=== PATIENT | female | born 1935 | race Caucasian/White ===

== ENCOUNTER → 2018-05-08 09:33 | Outpatient (CLI) | payer MEDICARE, BC ==
[2010-10-21 09:29] VITALS: BMI 23.8
== END | disposition home or self-care (01) ==
LOC: D.CT 09:33
DX: G31.84 Mild cognitive impairment of uncertain or unknown etiology (principal)

== ENCOUNTER 2019-02-14 14:43 | Inpatient (IN) | payer MEDICARE, BC ==
[~2019-02-14] VITALS: Ht 157.5 cm; Wt 53.1 kg
[2019-02-14 15:06] LABS: BASOPHILS 0.5 % (0-2); EOSINOPHILS 0.6 % (0-7); HEMATOCRIT 36.1 % (36.0-48.0); HEMOGLOBIN 11.7 g/dL (12-16); IMMATURE GRANULOCYTES 0.2 % (0-5); MCHC 32.4 g/dL (31.0-37.0); MCV 95.8 fL (80.0-100.0); MEAN PLATELET VOLUME 9.5 fL (7.4-10.4); MONOCYTES 5.5 % (2-11); NEUTROPHILS 81.2 % (40-80); PLATELET COUNT 234 10x3/uL (130-400); RBC 3.77 10x6/uL (4.00-5.40); RDW 14.2 % (11.5-14.5); WBC 8.8 10x3/uL (4.8-10.8)
[2019-02-14 15:16] LABS: ANION GAP 10.7 mmol/L (8-16); CARBON DIOXIDE 27.9 mmol/L (21.0-32.0); CREATININE - SERUM 1.1 mg/dL (0.6-1.3); POTASSIUM - SERUM 4.6 mmol/L (3.5-5.1)
[2019-02-14 15:24] LABS: ALBUMIN 3.7 g/dL (3.4-5.0); BILIRUBIN - TOTAL 0.67 mg/dL (0.2-1.3); PROTEIN - SERUM 7.4 g/dL (6.4-8.2)
--- NOTE | 2019-02-14 15:30 | NUR ---
PATIENT ASSISTED WITH BEDPAN
[2019-02-14 15:31] LABS: APTT 26.1 SECONDS (22.8-39.4); INR 0.99 (0.85-1.17); PROTIME 12.6 SECONDS (11.6-15.0)
--- NOTE | 2019-02-14 16:40 | NUR ---
PT'S ABDM DISTENDED AND FIRM; EDP RAJAT NOTIFIED; AND INDWELLING OATES CAT ORDERED; 1000 MLS URINE OUTPUT; CATH CLAMPED;
[2019-02-14 17:09] VITALS: BP 188/93
--- NOTE | 2019-02-14 17:41 | NUR ---
RECEIVED PATIENT FROM ER, ALERT AND ORIENTED. C/O PAIN TO RIGHT HIP. NO S/S OF ACUTE DISTRESS NOTED. VITALS STABLE IV TO LEFT FOREARM, SL. SITE PATENT WITHOUT REDNESS OR SWELLING. OATES CATHETER PRESENT. DENIES ANY NEEDS AT THIS TIME. CALL LIGHT IN REACH. WILL CONTINUE TO MONITOR.
[2019-02-14 17:43] VITALS: BP 181/84
--- NOTE | 2019-02-14 18:44 | NUR ---
ALERT AND ORIENTED, RESTING IN BED. C/O PAIN, GAVE TYLENOL FOR THE PAIN. REFUSED MORPHINE. BP IS UP GAVE CLONIDINE FOR BP BEING 184/81.
--- NOTE | 2019-02-14 19:15 | NUR ---
BEDSIDE REPORT RECEIVED FROM KAITLYNN ESPINOSA. PATIENT ALERT AND ORIENTED WITH AT BEDSIDE. PUPILS REACTIVE. HAND ADVERTISING COPY WRITER STRONG AND EQUAL BILATERALLY. LUNGS CLEAR TO AUSCULTATION BILATERALLY. PATIENT PEDAL PULSES PALPABLE. FOOT PUMPS WEAK, 3/5. CAPILLARY REFILL LESS THAN 3 SECONDS. DENIES PAIN. SPOKE WITH PATIENT ABOUT MORPHINE AND TYLENOL. PATIENT DOES NOT WANT MORPHINE. STATES SHE WANTS TO KEEP TAKING TYLENOL. DENIES FURTHER NEEDS AT THIS TIME. CALL LIGHT IN REACH. EDUCATED ON NPO STATUS. PATIENT UNDERSTANDING.
[2019-02-14 19:59] LABS: APPEARANCE CLEAR (CLEAR); BILIRUBIN NEGATIVE (NEGATIVE); COLOR STRAW (YELLOW); GLUCOSE NEGATIVE (NEGATIVE); KETONE NEGATIVE (NEGATIVE); NITRITE NEGATIVE (NEGATIVE); PROTEIN TRACE mg/dL (NEGATIVE); SPECIFIC GRAVITY 1.005 (1.005-1.020); UROBILINOGEN NORMAL (NORMAL)
[2019-02-14 21:02] VITALS: BP 135/66
[2019-02-14 22:23] VITALS: BP 135/66; BMI 21.4
[2019-02-15] MEDS ORDERED: FISH OIL 1,0001 CA1 PO (01:02)
[2019-02-15] MEDS ORDERED: VITAMIN B-12100 MCG PO (01:03)
[2019-02-15] MEDS ORDERED: ASCORBIC ACID500 MG PO (01:04)
[2019-02-15] MEDS ORDERED: OMEPRAZOLE20 M1 PO (01:06)
[2019-02-15] MEDS ORDERED: ALENDRONAT70 MG/75 M PO (01:06)
[2019-02-15] MEDS ORDERED: SYNTHROID100 MCG PO (01:08)
[2019-02-15] MEDS ORDERED: BAYER CHEWABLE81 MG PO (01:08)
[2019-02-15 01:20] VITALS: BP 131/64
--- NOTE | 2019-02-15 04:52 | NUR ---
UNLABORED RESPIRATIONS. NO DISTRESS NOTED. CALL LIGHT IN REACH. CPOC.
--- NOTE | 2019-02-15 05:28 | NUR ---
CHG BATH PERFORMED. PATIENT TOLERATED WELL.
[2019-02-15 05:52] VITALS: BP 135/62
[2019-02-15 06:25] LABS: BASOPHILS 0.4 % (0-2); EOSINOPHILS 1.4 % (0-7); HEMATOCRIT 34.1 % (36.0-48.0); HEMOGLOBIN 10.9 g/dL (12-16); IMMATURE GRANULOCYTES 0.1 % (0-5); LYMPHOCYTES 16.2 % (15-50); MCH 30.6 pg (26.0-34.0); MCV 95.8 fL (80.0-100.0); MEAN PLATELET VOLUME 10.2 fL (7.4-10.4); MONOCYTES 9.7 % (2-11); NEUTROPHILS 72.2 % (40-80); PLATELET COUNT 225 10x3/uL (130-400); RBC 3.56 10x6/uL (4.00-5.40); RDW 14.3 % (11.5-14.5); WBC 7.7 10x3/uL (4.8-10.8)
[2019-02-15 06:48] LABS: ANION GAP 14.5 mmol/L (8-16); CALCIUM 8.6 mg/dL (8.5-10.1); CARBON DIOXIDE 24.5 mmol/L (21.0-32.0); CREATININE - SERUM 1.1 mg/dL (0.6-1.3); MAGNESIUM - SERUM 1.9 mg/dL (1.8-2.4); PHOSPHOROUS 3.4 mg/dL (2.5-4.9)
--- NOTE | 2019-02-15 06:50 | HP ---
PATIENT: GARCIA GRANADOS MEDICAL RECORD: [id number] ACCOUNT: [id number] LOCATION:D.MS [facility] : 33 ADMISSION DATE: 02/14/19 PCP: BLAINE FERGUSON MD HISTORY AND PHYSICAL EXAMINATION REASON FOR ADMISSION: Fall with right hip pain. HISTORY OF PRESENT ILLNESS: The patient is an 83-year-old female with history of essential hypertension, who was blowing leaves in her yard when the electrical cord was hung on the rock and pulled her backwards. She landed on her right hip and had immediate pain. She did not hit her head or have any loss of consciousness. She was brought by ambulance to the Emergency Room where a right femoral neck fracture was noted. The patient was also on urinary retention. She denies recent chest pain, PND, or orthopnea. PAST MEDICAL HISTORY: Essential hypertension, Hall esophagus, mild cognitive impairment, hyperlipidemia, history of hypothyroidism post-treatment, actinic keratoses, osteoarthritis, postmenopausal atrophic vaginitis, and GERD. PAST SURGICAL HISTORY: TAHBSO and tonsillectomy. SOCIAL HISTORY: [place], mold cooler until about 5 years ago. Nonsmoker. Occasional wine drinker. FAMILY HISTORY: Father of stroke. Mother of acute NH and had cancer. HOME MEDICATIONS: Benazepril 5 mg with evening meal, omeprazole 20 mg q.a.m., fish oil 1000 mg p.o. daily, vitamin B12 1000 mcg p.o. daily, vitamin C 500 mg daily, PreserVision 1 p.o. b.i.d., levothyroxine 100 mcg p.o. daily, aspirin 81 mg a day, lisinopril 20 mg a day, alendronate 70 mg a.c. breakfast q. week. REVIEW OF SYSTEMS: GENERAL: No recent fatigue, fever, or weight loss. HEENT: No recent visual change, sinus congestion, or sore throat. RESPIRATORY: No SOB or cough. CARDIAC: No chest pain, claudication, or edema. GASTROINTESTINAL: No nausea, vomiting, change in stools or blood per rectum. Has mild dyspepsia, improved on Prilosec. GENITOURINARY: History of urinary incontinence, occasionally UTI. MUSCULOSKELETAL: He has had arthritis in both knees with knee pain in his right hip discomfort as mentioned with any movement, fairly comfortable at rest. INTEGUMENT: No rash or itching. PSYCHIATRIC: Denies depress mood. NEUROLOGIC: No history of stroke, TIA, or vascular headaches. She has CT of her brain approximately a year ago that showed minimal atrophy. She has had more problems recently with recent memory and MoCA was decreased at 20/30. PHYSICAL EXAMINATION: VITAL SIGNS: Her blood pressure 180/93, pulse ox is 97% on room air. Respirations are 18 per minute, pulse is 68 and regular, temperature 97.9. The patient is alert and oriented and called my name on seeing me in the room. HEENT: Normocephalic, atraumatic. Eyes are clear. Pupils are reactive. NECK: No bruits or masses. HISTORY AND PHYSICAL [id number] GARCIA GRANADOS CHEST: Clear. HEART: Regular without murmur. ABDOMEN: Soft, nontender. BREASTS: Symmetrical. GENITOURINARY: Her bladder was distended. Post was placed. She has had over 1000 cc out briskly and Post is now clamped. Pubic rami are nontender. EXTREMITIES: She has a little bit of edema over her right lateral hip and slight shortening of the right leg. It was not examined totally because of pain. Neurovascular is intact distally. No gross edema. NEUROLOGIC: Oriented to person, place, and time. Cranial nerves intact. Gait was not tested. Reflexes are symmetrical. LABORATORY DATA: Shows a white count of 8800 with H and H of 11.7 and 36.1. INR is 0.99. Electrolytes are normal. BUN is 29 and creatinine is 1.1. Liver functions are normal. Right hip x-ray shows superior angulation of a right femoral neck fracture. Knee showed degenerative changes. EKG is pending. Chest x-ray is pending. ASSESSMENT: 1. Fall with right femoral neck fracture. 2. Essential hypertension. 3. Mild dementia. 4. Hyperlipidemia. 5. Osteoporosis. 6. Hypothyroidism. PLAN: The patient's pain will be controlled. We moved to the orthopedic floor for orthopedic consult. EKG, chest x-ray, and probable ORIF in the a.m. TRANSINT:[id number] Voice Confirmation ID: [id number] DOCUMENT ID: [id number] BLAINE FERGUSON MD at 0650 CC: [id number] DICTATION DATE: 02/14/191715 WILDLIFE CONSERVATION PROFESSOR: 02/14/192050 ADM IN [facility] [address] [id number]
--- NOTE | 2019-02-15 07:20 | NUR ---
PT RESTING IN BED. NO SIGNS OF DISTRESS. IV TO LEFT FORARM PATENT NO REDNESS OR TENDERNESS. HAS OATES NO KINKS. AWAITING FOR SURGERY TODAY. DENIES ANY FUTHER NEED AT THIS TIME. CALL LIGHT IN REACH. BED LOW POSITION. FAMILY AT BEDSIDE
[2019-02-15 08:51] VITALS: BP 162/68
[2019-02-15 12:40] VITALS: BP 149/76
--- NOTE | 2019-02-15 15:05 | NUR ---
TO OR VIA BED
--- NOTE | 2019-02-15 16:11 | NUR ---
BRUISING NOTEDON PATIENTS RIGHT HIP AND LEG, TWORLEY.
[2019-02-15 17:25] VITALS: BP 143/68
--- NOTE | 2019-02-15 19:15 | NUR ---
PATIENT ALERT AND ORIENTED WHEN ENTERING THE ROOM. AT BEDSIDE. PATIENT HAS RIGHT HIP INCISION WITH WOUND VAC ATTACHED AND APPROPRIATE SUCTION NOTED. PATIENT PEDAL PULSES PALPABLE. FOOT PUMPS EQUAL. DENIES PAIN. OATES IN PLACE DRAINING YELLOW URINE. CALL LIGHT IN REACH. CPOC.
[2019-02-15 20:56] VITALS: BP 140/64
--- NOTE | 2019-02-15 23:01 | NUR ---
IV TO THE LEFT FOREARM INFILTRATED. RESITED TO DIFFERENT AREA OF LEFT FOREARM. 22 G, ONE ATTEMPT.
[2019-02-16 05:21] VITALS: BP 153/66
[2019-02-16 05:38] LABS: ANION GAP 13.5 mmol/L (8-16); CALCIUM 7.7 mg/dL (8.5-10.1); CARBON DIOXIDE 24.3 mmol/L (21.0-32.0); CREATININE - SERUM 1.1 mg/dL (0.6-1.3); POTASSIUM - SERUM 3.8 mmol/L (3.5-5.1)
--- NOTE | 2019-02-16 06:13 | NUR ---
I have reviewed this patient and I concur with the Shift Assessment completed by the Licensed Practical Nurse today this shift.
--- NOTE | 2019-02-16 07:00 | NUR ---
PT IS RESTING IN BED WITH EYES CLOSED. RESPIRATIONS ARE EVEN AND UNLABORED. PT IS EASILY AROUSED WITH VERBAL STIMULATION. PT IS AAO X 4 UPON AROUSAL AND ANSWERS QUESTIONS APPROPRIATELY. WOUND VAC NOTED TO RIGHT HIP WITH DRESSING INTACT AND WITHOUT COMPROMISE. PIV TO LEFT FA REMOVED. PT IS NOT AWARE TO HOW PIV WAS REMOVED. CATHETER TIP INTACT. NO BLEEDING NOTED. 22G PIV RESITED TO LEFT FA X 1 ATTEMPT. PT TOLERATED WELL. PT DENIES PRESENCE OF PAIN/N/V AT THIS TIME. BED IS IN THE LOWEST POSITION. CALL LIGHT AND BEDSIDE TABLE ARE WITHIN REACH. SIDE RAILS X 2. FALL PRECAUTIONS ARE IN PLACE. PT DENIES FURTHER NEEDS. WILL CONT TO MONITOR.
[2019-02-16 09:19] VITALS: BP 119/61
--- NOTE | 2019-02-16 09:59 | NUR ---
INCENTIVE SPIROMETER GIVEN TO PT. EDUCATION PERTAINING TO IS GIVEN TO PT AND PT FAMILY MEMBER. PT RETURNS DEMONSTRATION OF PROPER USE OF IS. PT DENIES FURTHER QUESTIONS/CONCERNS.
[2019-02-16 12:20] VITALS: BP 132/66
[2019-02-16 17:04] VITALS: BP 132/64
[2019-02-16 20:00] VITALS: BP 161/75
[2019-02-17 04:00] VITALS: BP 172/89
[2019-02-17 06:56] LABS: BASOPHILS 0.2 % (0-2); EOSINOPHILS 0.2 % (0-7); HEMATOCRIT 28.7 % (36.0-48.0); HEMOGLOBIN 9.2 g/dL (12-16); IMMATURE GRANULOCYTES 0.2 % (0-5); LYMPHOCYTES 10.6 % (15-50); MCH 30.5 pg (26.0-34.0); MCHC 32.1 g/dL (31.0-37.0); MEAN PLATELET VOLUME 9.3 fL (7.4-10.4); MONOCYTES 9.7 % (2-11); NEUTROPHILS 79.1 % (40-80); PLATELET COUNT 188 10x3/uL (130-400); RBC 3.02 10x6/uL (4.00-5.40); RDW 14.5 % (11.5-14.5)
--- NOTE | 2019-02-17 07:12 | NUR ---
PT IS RESTING IN BED WITH EYES CLOSED. RESPIRATIONS ARE EVEN AND UNLABORED. PT IS EASILY AROUSED WITH VERBAL STIMULATION. PT IS ORIENTED TO SELF AND TIME UPON AROUSAL AND IS EASILY REORIENTED TO PLACE AND SITUATION. PT STATES "YOU MEAN I DIDNT LEAVE HERE LAST NIGHT? I THOUGHT THAT I WENT HOME." PT ANSWERS ALL QUESTIONS APPROPRIATLEY UPON AROUSAL. PT DENIES PRESENCE OF PAIN AND STATES "IT JUST ITCHES REALLY BAD WHERE THIS THING IS ON MY HIP" PT DENIES PRESENCE OF NUMBNESS/TINGLING/N/V/AND REPORTS PAIN 2/10 AT THIS TIME. PEDAL PULSES PALP. CAP REFILL < 3 TO RLE. PT DENIES FURTHER NEEDS. BED IS IN THE LOWEST POSITION. CALL LIGHT AND BEDSIDE TABLE ARE WITHIN REACH. SIDE RAILS X 2. FALL PRECAUTIONS ARE IN PLACE. WILL CONT TO MONITOR.
[2019-02-17 08:21] VITALS: BP 171/84
[2019-02-17 12:12] VITALS: BP 134/71
--- NOTE | 2019-02-17 14:30 | MORECARE ---
CASE MANAGEMENT DISCHARGE SUMMARY PATIENT: GARCIA GRANADOS UNIT: [id number] ADM DATE: 02/14/19 AGE: 83 : 33 SEX: F ROOM/BED: D.2214 AUTHOR: SUMA CANO PHYSICIAN: REFERRING PHYSICIAN: BLAINE FERGUSON MD DATE OF SERVICE: 02/17/19 Discharge Plan Patient Name: GARCIA GRANADOS [facility] [place] [facility] 1935 Planned Disposition: Inpatient Rehab Anticipated Discharge Date: Discharge Date: Expected LOS: Initial Reviewer: [email or web address] Initial Review Date: 02/14/2019 Generated: 02/17/19 3:30 pm Patient Name: GARCIA GRANADOS Page [phone] at 1430 All edits/amendments must be made on the electronic document DICTATION DATE: 02/17/19 [address] [employer] FACER: FAWAD 02/17/19 1430 RPT#: [id number] DC DATE: STATUS: ADM IN [facility] [address] [place] [address] END OF REPORT
--- NOTE | 2019-02-17 14:38 | MORECARE ---
CASE MANAGEMENT DISCHARGE SUMMARY PATIENT: GARCIA GRANADOS UNIT: [id number] ADM DATE: 02/14/19 AGE: 83 : 33 SEX: F ROOM/BED: D.2214 AUTHOR: SMUA CANO PHYSICIAN: REFERRING PHYSICIAN: BLAINE FERGUSON MD DATE OF SERVICE: 02/17/19 Discharge Plan Patient Name: GARCIA GRANADOS Facility: [facility]:[place] : 1935 Planned Disposition: Inpatient Rehab Anticipated Discharge Date: Discharge Date: Expected LOS: Initial Reviewer: [email or web address] Initial Review Date: 02/14/2019 Generated: 02/17/19 3:38 pm Comments DCP- Discharge Planning Updated by [email or web address]: Poly Willson on 02/17/19 1:[address] Patient Name: GARCIA GRANADOS Admission Status: ER Accout number: [id number] Admission Date: 02-14-2019 : 1935 Admission Diagnosis: Attending: BLAINE FERGUSON Current LOS: 3 Anticipated DC Date: Planned Disposition: Inpatient Rehab Primary Insurance: MEDICARE A & B Discharge Planning Comments: CM met with patient to complete initial dc planning assessment. CM educated patient on the CM role and verbal consent given by patient to complete assessment. Patient lives at home with her where she was independent with her care. At discharge patient plans to go to inpatient rehab at [facility] and feels this is a safe discharge. CM discussed availability of home health, rehab services, and medical equipment. She has a walker at home. I have sent a referral to Roxanne at [facility]. [facility] served and explained. Patient denied known discharge needs at this time. CM will continue to follow and will assist as needed with dc plans/needs. Real Estate Appraiser: Poly Willson DCPIA - Discharge Planning Initial Assessment Updated by [email or web address]: Poly Willson on 02/17/19 2:32 pm * Is the patient Alert and Oriented? Yes * How many steps to enter\exit or inside your home? * PCP [facility] * [facility]acy [facility] * Preadmission Environment Home with Family * ADLs Independent * Equipment Rolling Walker * List name and contact numbers for known caregivers / representatives who currently or will assist patient after discharge: NELY GRANADOS [phone] * Verbal permission to speak to the caregivers and representatives has been obtained from the patient. N/A * Community resources currently utilized None * Additional services required to return to the preadmission environment? Yes * Can the patient safely return to the preadmission environment? Yes * Has this patient been hospitalized within the prior 30 days at any hospital? No Coverage Notice Reviewer: [email or web address] Derrell Willson Notice Issued Date-Time: 02/17/2019 14:28 Notice Type: IM Discharge Notice Notice Delivered To: Patient Relationship to Patient: Dynamics Ax Developer Name: Delivery Method: HAND - Hand Delivered Elayne Days: Prior Verbal Notification: Recipient Understood Notice: Yes Recipient Signature: Yes Med Rec Note Co-signed by Attending: Coverage Notice Comment: Last DP export: 02/17/19 1:30 Patient Name: GARCIA GRANADOS Page [phone] at 1438 All edits/amendments must be made on the electronic document DICTATION DATE: 02/17/191437 TAG PRESS OPERATOR: FAWAD 02/17/191437 RPT#: [id number] DC DATE: STATUS: ADM IN [facility] [address] [place] [address] END OF REPORT
--- NOTE | 2019-02-17 14:46 | MORECARE ---
CASE MANAGEMENT DISCHARGE SUMMARY PATIENT: GARCIA GRANADOS UNIT: [id number] ADM DATE: 02/14/19 AGE: 83 : 33 SEX: F ROOM/BED: D.2214 AUTHOR: SUMA CANO PHYSICIAN: REFERRING PHYSICIAN: BLAINE FERGUSON MD DATE OF SERVICE: 02/17/19 Discharge Plan Patient Name: GARCIA GRANADOS Facility: [facility]:[place] : 1935 Planned Disposition: Inpatient Rehab Anticipated Discharge Date: Discharge Date: Expected LOS: Initial Reviewer: [email or web address] Initial Review Date: 02/14/2019 Generated: 02/17/19 3:46 pm Comments DCP- Discharge Planning Updated by [email or web address]: Poly Willson on 02/17/19 1:[address] Patient Name: GARCIA GRANADOS Admission Status: ER Accout number: [id number] Admission Date: 02-14-2019 : 1935 Admission Diagnosis: Attending: BLAINE FERGUSON Current LOS: 3 Anticipated DC Date: Planned Disposition: Inpatient Rehab Primary Insurance: MEDICARE A & B Discharge Planning Comments: CM met with patient to complete initial dc planning assessment. CM educated patient on the CM role and verbal consent given by patient to complete assessment. Patient lives at home with her where she was independent with her care. At discharge patient plans to go to inpatient rehab at [facility] and feels this is a safe discharge. CM discussed availability of home health, rehab services, and medical equipment. She has a walker at home. I have sent a referral to Roxanne at [facility]. [facility] served and explained. Patient denied known discharge needs at this time. CM will continue to follow and will assist as needed with dc plans/needs. Solar Thermal Technician: Poly Willson DCPIA - Discharge Planning Initial Assessment Updated by [email or web address]: Poly Willson on 02/17/19 2:32 pm * Is the patient Alert and Oriented? Yes * How many steps to enter\exit or inside your home? * PCP YORUBA * [facility]acy [facility] * Preadmission Environment Home with Family * ADLs Independent * Equipment Rolling Walker * List name and contact numbers for known caregivers / representatives who currently or will assist patient after discharge: NELY GRANADOS [phone] * Verbal permission to speak to the caregivers and representatives has been obtained from the patient. N/A * Community resources currently utilized None * Additional services required to return to the preadmission environment? Yes * Can the patient safely return to the preadmission environment? Yes * Has this patient been hospitalized within the prior 30 days at any hospital? No External Providers External Provider: [facility] Contact Date: Service Request Date: Service Type: Resolution: Reviewer: Comments: Coverage Notice Reviewer: [email or web address] Derrell Willson Notice Issued Date-Time: 02/17/2019 14:28 Notice Type: IM Discharge Notice Notice Delivered To: Patient Relationship to Patient: Latex Thread Machine Operator Name: Delivery Method: HAND - Hand Delivered Elayne Days: Prior Verbal Notification: Recipient Understood Notice: Yes Recipient Signature: Yes Med Rec Note Co-signed by Attending: Coverage Notice Comment: Last DP export: 02/17/19 1:38 Patient Name: GARCIA GRANADOS Page [phone] at 1446 All edits/amendments must be made on the electronic document DICTATION DATE: 02/17/19 1446 COUNTERSINKER BALANCE SCREW HOLE: FAWAD 02/17/19 1446 RPT#: [id number] DC DATE: STATUS: ADM IN [facility] [address] [place] [address] END OF REPORT
--- NOTE | 2019-02-17 15:19 | NUR ---
OT NOTE: PT COMPLETED REQUIRED MAX/MOD A FOR CHAIR TO BED TSF. PT REQUIRED MOD A FOR BED MOB . PT COMPLETED UE AROM AXS. THANK YOU,ELLE GERMAIN
[2019-02-17 16:57] VITALS: BP 142/73
[2019-02-17 20:00] VITALS: BP 156/77
--- NOTE | 2019-02-17 20:00 | NUR ---
RESTING IN BED ALERT AND CONFUSED, WOUND VAC INTACT TO R HIP, OATES CATH TO BEDSIDE DRAINAGE, SEE SHIFT ASSESSMENT, CALL LIGHT IN REACH
[2019-02-18 04:00] VITALS: BP 158/75
[2019-02-18 04:44] LABS: BASOPHILS 0.1 % (0-2); EOSINOPHILS 1.1 % (0-7); HEMATOCRIT 27.6 % (36.0-48.0); HEMOGLOBIN 8.8 g/dL (12-16); IMMATURE GRANULOCYTES 0.2 % (0-5); LYMPHOCYTES 11.7 % (15-50); MCH 30.6 pg (26.0-34.0); MCHC 31.9 g/dL (31.0-37.0); MCV 95.8 fL (80.0-100.0); MEAN PLATELET VOLUME 9.8 fL (7.4-10.4); MONOCYTES 9.6 % (2-11); NEUTROPHILS 77.3 % (40-80); PLATELET COUNT 222 10x3/uL (130-400); RBC 2.88 10x6/uL (4.00-5.40); RDW 14.2 % (11.5-14.5); WBC 9.7 10x3/uL (4.8-10.8)
--- NOTE | 2019-02-18 06:55 | NUR ---
RESTING IN BED, EYES CLOSED. RESPIRATIONS EVEN AND UNLABORED. NO C/O PAIN. NO S/S OF ACUTE DISTRESS NOTED. POD #3 RIGHT HIP, WOUND VAC PRESENT. OATES CATHETER PRESENT. UP WITH PHYSICAL THERAPY. IV TO LEFT FOREARM, NS INFUSING @ 50 ML/HR. SITE PATENT WITHOUT REDNESS OR SWELLING. DENIES ANY NEEDS AT THIS TIME. CALL LIGHT IN REACH. WILL CONTINUE TO MONITOR.
[2019-02-18 08:19] VITALS: BP 117/75
--- NOTE | 2019-02-18 11:30 | NUR ---
OT NOTE: PRACTICED BED MOB WITH MOD/MAX ASSIST; PT ABLE TO ASSIST TODAY WITH SCOOTING OUT TO EOB. STATIC SITTING WITH SBA. SIT TO STAND WITH MOD ASSIST; ABLE TO TRANSFER FROM BED TO CHAIR WITH WALKER AND MOD ASSIST. PT UNABLE TO BEAR WT THROUGH R LE AND DUE TO UE WEAKNESS, SHE CANNOT SUPPORT HERSELF WITH ARMS TO ALLOW HER TO ADVANCE L LEG FOR STEP. PT CURRENTLY SCOOTING FOOT IN ORDER TO MOVE IT. SET UP WITH SIMPLE GROOMING AND FEEDING. CONSUMED 100% OF BREAKFAST. TOM CASTRO, OTR/L
[2019-02-18 12:37] VITALS: BP 148/73
--- NOTE | 2019-02-18 14:54 | NUR ---
I have reviewed this patient and I concur with the Shift Assessment completed by the Licensed Practical Nurse today this shift.
--- NOTE | 2019-02-18 15:30 | MORECARE ---
CASE MANAGEMENT DISCHARGE SUMMARY PATIENT: GARCIA GRANADOS UNIT: [id number] ADM DATE: 02/14/19 AGE: 83 : 33 SEX: F ROOM/BED: D.2214 AUTHOR: SUMA CANO PHYSICIAN: REFERRING PHYSICIAN: BLAINE GARLAND MD DATE OF SERVICE: 02/18/19 Discharge Plan Patient Name: GARCIA GRANADOS Facility: [facility]:[place] : 1935 Planned Disposition: Inpatient Rehab Anticipated Discharge Date: Discharge Date: Expected LOS: Initial Reviewer: [email or web address] Initial Review Date: 02/14/2019 Generated: 02/18/19 4:29 pm Comments DCP- Discharge Planning Updated by [email or web address]: Poly Willson on 02/18/19 2:[address] Garland, he wants to keep her over night. Possible DC to [facility] tomorrow DCP- Discharge Planning Updated by [email or web address]: Poly Willson on 02/17/19 1:[address] Patient Name: GARCIA GRANADOS Admission Status: ER Accout number: [id number] Admission Date: 02-14-2019 : 1935 Admission Diagnosis: Attending: BLAINE GARLAND Current LOS: 3 Anticipated DC Date: Planned Disposition: Inpatient Rehab Primary Insurance: MEDICARE A & B Discharge Planning Comments: CM met with patient to complete initial dc planning assessment. CM educated patient on the CM role and verbal consent given by patient to complete assessment. Patient lives at home with her where she was independent with her care. At discharge patient plans to go to inpatient rehab at [facility] and feels this is a safe discharge. CM discussed availability of home health, rehab services, and medical equipment. She has a walker at home. I have sent a referral to Roxanne at [facility]. [facility] served and explained. Patient denied known discharge needs at this time. CM will continue to follow and will assist as needed with dc plans/needs. Bag Cutter: Poly Willson DCPIA - Discharge Planning Initial Assessment Updated by [email or web address]: Poly Willson on 02/17/19 2:32 pm * Is the patient Alert and Oriented? Yes * How many steps to enter\exit or inside your home? * PCP [facility]YAN[facility] * [facility] * Preadmission Environment Home with Family * ADLs Independent * Equipment Rolling Walker * List name and contact numbers for known caregivers / representatives who currently or will assist patient after discharge: NELY GRANADOS [phone] * Verbal permission to speak to the caregivers and representatives has been obtained from the patient. N/A * Community resources currently utilized None * Additional services required to return to the preadmission environment? Yes * Can the patient safely return to the preadmission environment? Yes * Has this patient been hospitalized within the prior 30 days at any hospital? No Coverage Notice Reviewer: [email or web address] Derrell Willson Notice Issued Date-Time: 02/17/2019 14:28 Notice Type: IM Discharge Notice Notice Delivered To: Patient Relationship to Patient: Health Educator Name: Delivery Method: HAND - Hand Delivered Elayne Days: Prior Verbal Notification: Recipient Understood Notice: Yes Recipient Signature: Yes Med Rec Note Co-signed by Attending: Coverage Notice Comment: Last DP export: 02/17/19 1:46 Patient Name: GARCIA GRANADOS Page [phone] at 1530 All edits/amendments must be made on the electronic document DICTATION DATE: 02/18/191528 RETENTION MANAGER: FAWAD 02/18/191528 RPT#: [id number] DC DATE: STATUS: ADM IN [facility] [address] [place] [address] END OF REPORT
--- NOTE | 2019-02-18 16:34 | NUR ---
OT NOTE: PT COMPLETED SIT TO STAND WITH MOD A. PT COMPLETED TRANSFER FROM CHAIR TO BED WITH MOD A. PT COMPLETED BED MOB TASKS WITH MIN/MOD A. PT COMPLETED UE AROM AXS. THANK YOU, ELLE GERMAIN
--- NOTE | 2019-02-18 18:57 | NUR ---
SITTING UP IN BED, EYES OPEN. NO C/O PAIN. NO S/S OF ACUTE DISTRESS NOTED. DENIES ANY NEEDS AT THIS TIME. CALL LIGHT IN REACH. FALL PRECAUTIONS IN PLACE.
--- NOTE | 2019-02-18 19:39 | NUR ---
SITTING UP IN BED WITH TV ON, DENIES ANY PAIN AT THIS TIME. SHOWS NO S/S OF ANY ACUTE DISTRESS. WILL NOTE ANY CHANGE.
[2019-02-18 20:25] VITALS: BP 130/79
--- NOTE | 2019-02-18 23:25 | NUR ---
I have reviewed this patient and I concur with the Shift Assessment completed by the Licensed Practical Nurse today this shift.
[2019-02-19 00:20] VITALS: BP 131/63
[2019-02-19 03:56] VITALS: BP 154/61
[2019-02-19 05:37] LABS: BASOPHILS 0.4 % (0-2); EOSINOPHILS 1.6 % (0-7); HEMATOCRIT 25.8 % (36.0-48.0); HEMOGLOBIN 8.3 g/dL (12-16); IMMATURE GRANULOCYTES 0.3 % (0-5); MCH 30.6 pg (26.0-34.0); MCHC 32.2 g/dL (31.0-37.0); MCV 95.2 fL (80.0-100.0); MEAN PLATELET VOLUME 9.4 fL (7.4-10.4); MONOCYTES 10.5 % (2-11); NEUTROPHILS 74.2 % (40-80); PLATELET COUNT 233 10x3/uL (130-400); RBC 2.71 10x6/uL (4.00-5.40); RDW 14.1 % (11.5-14.5); WBC 9.5 10x3/uL (4.8-10.8)
[2019-02-19 08:39] VITALS: BP 153/70
--- NOTE | 2019-02-19 09:07 | NUR ---
PATIENT RESTING WITH NO NEEDS VOICED. WOUND VAC INTACT TO RIGHT HIP.
[2019-02-19 10:21] LABS: APPEARANCE CLEAR (CLEAR); BILIRUBIN NEGATIVE (NEGATIVE); COLOR YELLOW (YELLOW); GLUCOSE NEGATIVE (NEGATIVE); KETONE NEGATIVE (NEGATIVE); NITRITE NEGATIVE (NEGATIVE); PROTEIN TRACE mg/dL (NEGATIVE); UROBILINOGEN NORMAL (NORMAL)
[2019-02-19 10:25] LABS: BACTERIA FEW /hpf (NEGATIVE); GRANULAR CAST RARE /lpf (NONE SEEN); MUCUS <1+ /lpf (NONE SEEN); RED CELLS - URINE 0-5 /hpf (0-5)
[2019-02-19 10:26] LABS: EPITHELIAL CELLS OCC /hpf (0-5); WHITE CELLS - URINE OCC /hpf (NEGATIVE)
[2019-02-19 12:57] VITALS: BP 155/60
--- NOTE | 2019-02-19 14:13 | NUR ---
OT NOTE: PT DOING BETTER. CONT TO REQUIRE MOD ASSIST FOR BED MOB AND MOD ASSIST FOR WALKER MGMT. TRANSFER BACK TO BED WAS BETTER THAN INITIAL TRANSFER SHE WAS ABLE TO LIFT L LEG VS SLIDING IT. CONT TO REQUIRE EXT ASSIST WITH ADLS. TOM CASTRO, OTR/L
[2019-02-19 14:58] VITALS: Ht 157.5 cm; Wt 53.1 kg
--- NOTE | 2019-02-19 15:53 | NUR ---
OT NOTE: PT COMPLETED SUPINE TO SIT WITH MOD A. PT COMPLETED EOB SITTING WITH SBA/CGA. PT COMPLETED LB HYGIENE TASKS WITH MOD/MAX A. THANK YOU, ELLE GERMAIN
[2019-02-19 17:27] VITALS: BP 125/62
--- NOTE | 2019-02-19 19:35 | NUR ---
LYING IN BED WITH EYES CLOSED AND SHOWS NO S/S OF ANY ACUTE DISTRESS, IV TO LEFT FOREARM WITH NORMAL SALINE AT 50/HR. OATES IN PLACE WITH CLEAR URINE DRAINING. BED ALARM ACTIVATED. ABLE TO VOICE ALL NEEDS. WILL NOTE ANY CHANGE.
[2019-02-19 20:00] VITALS: BP 172/81
--- NOTE | 2019-02-19 21:45 | NUR ---
LOW GRADE FEVER NOTED AT 2030, TYLENOL 650 GIVEN PER ORDERS. AT THIS TIME, TEMPERATURE IS 98.7. WILL NOTE ANY CHANGE.
[2019-02-20] VITALS: BP 137/68
--- NOTE | 2019-02-20 03:49 | NUR ---
BED ALARM SOUNDED, PT WAS "TRYING TO FIND HER ROOM", DID NOT EXIT BED AND WAS STILL IN BED LYING ON BACK. SHE WAS PLEASANTLY CONFUSED SAYING SHE HAS "WHISTLED AND NO ONE CAME". SHE WAS ASKING FOR HER MORNING MEDICATION, REORIENTED TO TIME OF DAY. HAD NO MORE COMPLAINTS AND HAD CALL LIGHT IN REACH. WILL NOTE ANY CHANGE.
[2019-02-20 04:00] VITALS: BP 144/74
[2019-02-20 04:48] LABS: BASOPHILS 0.2 % (0-2); EOSINOPHILS 0.9 % (0-7); HEMATOCRIT 26.4 % (36.0-48.0); HEMOGLOBIN 8.5 g/dL (12-16); IMMATURE GRANULOCYTES 0.2 % (0-5); LYMPHOCYTES 12.5 % (15-50); MCH 30.5 pg (26.0-34.0); MCHC 32.2 g/dL (31.0-37.0); MCV 94.6 fL (80.0-100.0); MEAN PLATELET VOLUME 9.8 fL (7.4-10.4); MONOCYTES 9.7 % (2-11); NEUTROPHILS 76.5 % (40-80); PLATELET COUNT 263 10x3/uL (130-400); RBC 2.79 10x6/uL (4.00-5.40); RDW 13.8 % (11.5-14.5); WBC 8.6 10x3/uL (4.8-10.8)
--- NOTE | 2019-02-20 07:10 | NUR ---
PT RESTING IN BED. NO SIGNS OF DISTRESS. IV TO LEFT FORARM PATENT NO REDNESS OR TENDERNESS. HAS INCISION TO HIP. CLEAN AND INTACT. DENIES ANY NEED AT THIS TIME. CALL LIGHT IN REACH. BED LOW POSITION. NO FAMILY AT BEDSIDE AT THIS TIME.
[2019-02-20 09:21] VITALS: BP 130/68
[2019-02-20 12:16] VITALS: BP 124/60
--- NOTE | 2019-02-20 13:48 | NUR ---
I have reviewed this patient and I concur with the Shift Assessment completed by the Licensed Practical Nurse today this shift.
--- NOTE | 2019-02-20 15:12 | NUR ---
OT NOTE: PT COMPLETED BED MOB TASKS WITH MIN A. PT COMPLETED BUE AROM EXS. PT COMPLETED UB HYGIENE TASKS WITH SET UP. THANK YOU, ELLE FREGOSO
[2019-02-20 17:09] VITALS: BP 136/67
[2019-02-20 21:36] VITALS: BP 135/63
[2019-02-21 01:03] VITALS: BP 130/64
--- NOTE | 2019-02-21 01:30 | NUR ---
I have reviewed this patient and I concur with the Shift Assessment completed by the Licensed Practical Nurse today this shift.
[2019-02-21 05:16] VITALS: BP 150/66
[2019-02-21] MEDS ORDERED: DONEPEZIL HCL10 MG PO (07:26)
[2019-02-21] MEDS ORDERED: HCTZ25 MG PO (07:27)
[2019-02-21] MEDS ORDERED: LISINOPRIL10 MG PO (07:27)
[2019-02-21] MEDS ORDERED: HYDROCODON-ACE1 EAC7 PO (07:28)
--- NOTE | 2019-02-21 08:23 | NUR ---
PATIENT RECIEVED FROM PREVIOUS SHIFT RESTING IN BED WITH NO NEEDS VOICED, DENIES PAIN, DRESSING TO RIGHT HIP C/D/I. CL IN REACH
[2019-02-21 08:27] VITALS: BP 155/73
--- NOTE | 2019-02-21 09:56 | MORECARE ---
CASE MANAGEMENT DISCHARGE SUMMARY PATIENT: GARCIA GRANADOS UNIT: [id number] ADM DATE: 02/14/19 AGE: 83 : 33 SEX: F ROOM/BED: D.2214 AUTHOR: SUMA CANO PHYSICIAN: REFERRING PHYSICIAN: BLAINE GARLAND MD DATE OF SERVICE: 02/21/19 Discharge Plan Patient Name: GARCIA GRANADOS Facility: [facility]:[place] : 1935 Planned Disposition: Inpatient Rehab Anticipated Discharge Date: Discharge Date: Expected LOS: Initial Reviewer: [email or web address] Initial Review Date: 02/14/2019 Generated: 02/21/19 10:55 am Comments DCP- Discharge Planning Updated by [email or web address]: Poly Willson on 02/21/19 8:[address] PATIENT TO DISCHARGE TO INPATIENT REHAB AT [facility] ([facility]) TODAY. THEY WILL PROVIDE TRANSPORTATION. IMM SERVED AND EXPLAINED TO BOTH AND SPOUSE. COPY PLACED IN CHART. CM TO FOLLOW AND ASSIST NEEDED DCP- Discharge Planning Updated by [email or web address]: Poly Willson on 02/18/19 2:[address] Garland, he wants to keep her over night. Possible DC to [facility] tomorrow DCP- Discharge Planning Updated by [email or web address]: Poly Willson on 02/17/19 1:[address] Patient Name: GARCIA GRANADOS Admission Status: ER Accout number: [id number] Admission Date: 02-14-2019 : 1935 Admission Diagnosis: Attending: BLAINE GARLAND Current LOS: 3 Anticipated DC Date: Planned Disposition: Inpatient Rehab Primary Insurance: MEDICARE A & B Discharge Planning Comments: CM met with patient to complete initial dc planning assessment. CM educated patient on the CM role and verbal consent given by patient to complete assessment. Patient lives at home with her where she was independent with her care. At discharge patient plans to go to inpatient rehab at [facility] and feels this is a safe discharge. CM discussed availability of home health, rehab services, and medical equipment. She has a walker at home. I have sent a referral to Roxanne at [facility]. IMM served and explained. Patient denied known discharge needs at this time. CM will continue to follow and will assist as needed with dc plans/needs. Battery Container Inspector: Poly Willson DCPIA - Discharge Planning Initial Assessment Updated by [email or web address]: Poly Willson on 02/17/19 2:32 pm * Is the patient Alert and Oriented? Yes * How many steps to enter\exit or inside your home? * PCP [facility] * Pharmacy [facility] [address] * Preadmission Environment Home with Family * ADLs Independent * Equipment Rolling Walker * List name and contact numbers for known caregivers / representatives who currently or will assist patient after discharge: NELY GRANADOS [phone] * Verbal permission to speak to the caregivers and representatives has been obtained from the patient. N/A * Community resources currently utilized None * Additional services required to return to the preadmission environment? Yes * Can the patient safely return to the preadmission environment? Yes * Has this patient been hospitalized within the prior 30 days at any hospital? No Coverage Notice Reviewer: [email or web address] Derrell Willson Notice Issued Date-Time: 02/17/2019 14:28 Notice Type: IM Discharge Notice Notice Delivered To: Patient Relationship to Patient: Salt Maker Name: Delivery Method: HAND - Hand Delivered Elayne Days: Prior Verbal Notification: Recipient Understood Notice: Yes Recipient Signature: Yes Med Rec Note Co-signed by Attending: Coverage Notice Comment: Reviewer: [email or web address] Derrell Willson Notice Issued Date-Time: 02/21/2019 9:20 Notice Type: IM Discharge Notice Notice Delivered To: Family Member Relationship to Patient: Spouse Salt Maker Name: MR GRANADOS Delivery Method: HAND - Hand Delivered Elayne Days: Prior Verbal Notification: Recipient Understood Notice: Yes Recipient Signature: Yes Med Rec Note Co-signed by Attending: Coverage Notice Comment: Last DP export: 02/18/19 2:30 Patient Name: GARCIA GRANADOS Page [id number] at 0956 All edits/amendments must be made on the electronic document DICTATION DATE: 02/21/19954 BULL GANG WORKER: FAWAD 02/21/19954 RPT#: [id number] DC DATE: STATUS: ADM IN [facility] [address] [place] [address] END OF REPORT
[2019-02-21 12:47] VITALS: BP 122/65
--- NOTE | 2019-02-21 13:27 | MORECARE ---
CASE MANAGEMENT DISCHARGE SUMMARY PATIENT: GARCIA GRANADOS UNIT: [id number] ADM DATE: 02/14/19 AGE: 83 : 33 SEX: F ROOM/BED: D.2214 AUTHOR: SUMA CANO PHYSICIAN: REFERRING PHYSICIAN: BLAINE GARLAND MD DATE OF SERVICE: 02/21/19 Discharge Plan Patient Name: GARCIA GRANADOS Facility: [facility]:[place] : 1935 Planned Disposition: Inpatient Rehab Anticipated Discharge Date: Discharge Date: Expected LOS: Initial Reviewer: [email or web address] Initial Review Date: 02/14/2019 Generated: 02/21/19 2:27 pm Comments DCP- Discharge Planning Updated by [email or web address]: Poly Willson on 02/21/19 12:[address] Patient will be discharging to room 317 and will be picked up at 1300 DCP- Discharge Planning Updated by [email or web address]: Poly Willson on 02/21/19 8:[address] PATIENT TO DISCHARGE TO INPATIENT REHAB AT [facility] ([facility]) TODAY. THEY WILL PROVIDE TRANSPORTATION. IMM SERVED AND EXPLAINED TO BOTH AND SPOUSE. COPY PLACED IN CHART. CM TO FOLLOW AND ASSIST NEEDED DCP- Discharge Planning Updated by [email or web address]: Poly Willson on 02/18/19 2:[address] Garland, he wants to keep her over night. Possible DC to [facility] tomorrow DCP- Discharge Planning Updated by [email or web address]: Poly Willson on 02/17/19 1:[address] Patient Name: GARCIA GRANADOS Admission Status: ER Accout number: [id number] Admission Date: 02-14-2019 : 1935 Admission Diagnosis: Attending: BLAINE GARLAND Current LOS: 3 Anticipated DC Date: Planned Disposition: Inpatient Rehab Primary Insurance: MEDICARE A & B Discharge Planning Comments: CM met with patient to complete initial dc planning assessment. CM educated patient on the CM role and verbal consent given by patient to complete assessment. Patient lives at home with her where she was independent with her care. At discharge patient plans to go to inpatient rehab at [facility] and feels this is a safe discharge. CM discussed availability of home health, rehab services, and medical equipment. She has a walker at home. I have sent a referral to Roxanne at [facility]. IMM served and explained. Patient denied known discharge needs at this time. CM will continue to follow and will assist as needed with dc plans/needs. Physical Instructor: Poly Willson DCPIA - Discharge Planning Initial Assessment Updated by [email or web address]: Poly Willson on 02/17/19 2:32 pm * Is the patient Alert and Oriented? Yes * How many steps to enter\exit or inside your home? * PCP [place] * [facility]acy [facility] * Preadmission Environment Home with Family * ADLs Independent * Equipment Rolling Walker * List name and contact numbers for known caregivers / representatives who currently or will assist patient after discharge: NELY GRANADOS [phone] * Verbal permission to speak to the caregivers and representatives has been obtained from the patient. N/A * Community resources currently utilized None * Additional services required to return to the preadmission environment? Yes * Can the patient safely return to the preadmission environment? Yes * Has this patient been hospitalized within the prior 30 days at any hospital? No Coverage Notice Reviewer: [id number] Derrell Willson Notice Issued Date-Time: 02/17/2019 14:28 Notice Type: IM Discharge Notice Notice Delivered To: Patient Relationship to Patient: Senior Payroll Specialist Name: Delivery Method: HAND - Hand Delivered Elayne Days: Prior Verbal Notification: Recipient Understood Notice: Yes Recipient Signature: Yes Med Rec Note Co-signed by Attending: Coverage Notice Comment: Reviewer: [id number] Derrell Willson Notice Issued Date-Time: 02/21/2019 9:20 Notice Type: IM Discharge Notice Notice Delivered To: Family Member Relationship to Patient: Spouse Senior Payroll Specialist Name: MR GRANADOS Delivery Method: HAND - Hand Delivered Elayne Days: Prior Verbal Notification: Recipient Understood Notice: Yes Recipient Signature: Yes Med Rec Note Co-signed by Attending: Coverage Notice Comment: Last DP export: 02/21/19 8:56 Patient Name: GARCIA GRANADOS Page [phone] at 1327 All edits/amendments must be made on the electronic document DICTATION DATE: 02/21/19 1327 FLUXER: FAWAD 02/21/19 1327 RPT#: [id number] DC DATE: STATUS: ADM IN [facility] [address] [place] [address] END OF REPORT
--- NOTE | 2019-02-21 15:14 | NUR ---
REPORT CALLED TO EMILY AT [facility]. [facility] CATH REMOVED WITH PATIENT TOLERATING WELL. IV REMOVED WITH CATH INTACT. PATIENT TAKEN BY WHEELCHAIR TO [facility] FOR TRANSPORT TO THEIR FACILITY
--- NOTE | 2019-02-24 14:10 | MORECARE ---
CASE MANAGEMENT DISCHARGE SUMMARY PATIENT: GARCIA GRANADOS UNIT: [id number] ADM DATE: 02/14/19 AGE: 83 : 33 SEX: F ROOM/BED: D.2214 AUTHOR: SUMA CANO PHYSICIAN: REFERRING PHYSICIAN: BLAINE GARLAND MD DATE OF SERVICE: 02/24/19 Discharge Plan Patient Name: GARCIA GRANADOS Facility: [facility]:[place] : 1935 Planned Disposition: Inpatient Rehab Anticipated Discharge Date: Discharge Date: 02/21/2019 Expected LOS: Initial Reviewer: [email or web address] Initial Review Date: 02/14/2019 Generated: 02/24/19 3:10 pm Comments DCP- Discharge Planning Updated by [email or web address]: Poly Willson on 02/21/19 12:[address] Patient will be discharging to room 317 and will be picked up at 1300 DCP- Discharge Planning Updated by [email or web address]: Ploy Willson on 02/21/19 8:[address] PATIENT TO DISCHARGE TO INPATIENT REHAB AT [facility] ([facility]) TODAY. THEY WILL PROVIDE TRANSPORTATION. IMM SERVED AND EXPLAINED TO BOTH AND SPOUSE. COPY PLACED IN CHART. CM TO FOLLOW AND ASSIST NEEDED DCP- Discharge Planning Updated by [email or web address]: Poly Willson on 02/18/19 2:[address] Garland, he wants to keep her over night. Possible DC to [facility] tomorrow DCP- Discharge Planning Updated by [email or web address]: Poly Willson on 02/17/19 1:[address] Patient Name: GARCIA GRANADOS Admission Status: ER Accout number: [id number] Admission Date: 02-14-2019 : 1935 Admission Diagnosis: Attending: BLAINE GARLAND Current LOS: 3 Anticipated DC Date: Planned Disposition: Inpatient Rehab Primary Insurance: MEDICARE A & B Discharge Planning Comments: CM met with patient to complete initial dc planning assessment. CM educated patient on the CM role and verbal consent given by patient to complete assessment. Patient lives at home with her where she was independent with her care. At discharge patient plans to go to inpatient rehab at [facility] and feels this is a safe discharge. CM discussed availability of home health, rehab services, and medical equipment. She has a walker at home. I have sent a referral to Roxanne at [facility]. IMM served and explained. Patient denied known discharge needs at this time. CM will continue to follow and will assist as needed with dc plans/needs. Java J2Ee Lead: Poly Willson DCPIA - Discharge Planning Initial Assessment Updated by [email or web address]: Poly Willson on 02/17/19 2:32 pm * Is the patient Alert and Oriented? Yes * How many steps to enter\exit or inside your home? * PCP [place] * [facility] * Preadmission Environment Home with Family * ADLs Independent * Equipment Rolling Walker * List name and contact numbers for known caregivers / representatives who currently or will assist patient after discharge: NELY GRANADOS [phone] * Verbal permission to speak to the caregivers and representatives has been obtained from the patient. N/A * Community resources currently utilized None * Additional services required to return to the preadmission environment? Yes * Can the patient safely return to the preadmission environment? Yes * Has this patient been hospitalized within the prior 30 days at any hospital? No Coverage Notice Reviewer: [email or web address] Derrell Willson Notice Issued Date-Time: 02/17/2019 14:28 Notice Type: IM Discharge Notice Notice Delivered To: Patient Relationship to Patient: Psychological Operations Name: Delivery Method: HAND - Hand Delivered Elayne Days: Prior Verbal Notification: Recipient Understood Notice: Yes Recipient Signature: Yes Med Rec Note Co-signed by Attending: Coverage Notice Comment: Reviewer: [id number] Derrell Willson Notice Issued Date-Time: 02/21/2019 9:20 Notice Type: IM Discharge Notice Notice Delivered To: Family Member Relationship to Patient: Spouse Psychological Operations Name: MR GRANADOS Delivery Method: HAND - Hand Delivered Elayne Days: Prior Verbal Notification: Recipient Understood Notice: Yes Recipient Signature: Yes Med Rec Note Co-signed by Attending: Coverage Notice Comment: Last DP export: 02/21/19 12:27 Patient Name: GARCIA GRANADOS Page [phone] at 1410 All edits/amendments must be made on the electronic document DICTATION DATE: 02/24/191408 FIELD SECRETARY: FAWAD 02/24/191408 RPT#: [id number] DC DATE:02/21/19 STATUS: DIS IN [facility] [address] [place] [address] END OF REPORT
== END 2019-02-21 15:17 | DRG 470 ==
LOC: D.ER 14:43 → D.MS 16:38 → D.ER 17:17 → D.MS 02-21 15:17
PROVIDERS: Family Medicine; Orthopaedic Surgery; ADMIT Family Medicine; ATTEND Family Medicine
PROC: 0SRR0J9 Replacement of Right Hip Joint, Femoral Surface with Synthetic Substitute, Cemented, Open Approach (ICD-10-PCS; principal; 2019-02-15 12:00)
DX: S72.001A Fracture of unspecified part of neck of right femur, initial encounter for closed fracture (principal); S83.91XA Sprain of unspecified site of right knee, initial encounter; W19.XXXA Unspecified fall, initial encounter; Y92.096 Garden or yard of other non-institutional residence as the place of occurrence of the external cause; Y93.H2 Activity, gardening and landscaping; I10 Essential (primary) hypertension; E03.9 Hypothyroidism, unspecified; M81.0 Age-related osteoporosis without current pathological fracture; E78.5 Hyperlipidemia, unspecified; F03.90 Unspecified dementia, unspecified severity, without behavioral disturbance, psychotic disturbance, mood disturbance, and anxiety; D64.9 Anemia, unspecified